=== PATIENT | female | born 1990 | race Two or more races ===

== ENCOUNTER 2021-06-19 16:31 | Emergency (ER) | payer BC ==
--- NOTE | 2021-06-19 19:18 | EDM.PDOC ---
ED HPI GENERAL MEDICAL PROBLEM - General Chief Complaint: Neuro Symptoms/Deficits Stated Complaint: DIZZINESS X5 DAYS Time Seen by Provider: 06/19/21 18:54 Source of Information: Reports: Patient, Family () History Limitations: Reports: No Limitations - History of Present Illness INITIAL COMMENTS - FREE TEXT/NARRATIVE: Mrs. Chapa is a very pleasant 30-year-old woman who now presents to the ED stating that she has been feeling vertiginous on and off since 06/14/2021. The vertigo develops if she turns her head to either side, but is not present if she remains still. She has not had any associated nausea. She denies having a headache. No prior similar symptoms. The patient states that, believing that she might be dehydrated, she has been drinking Pedialyte, which has not helped. Here in the ED, the patient's initial BP is found to be elevated at 169/111, otherwise, she is hemodynamically stable, afebrile, saturating 99% on room air. She appears to be comfortable, in no acute distress. Prior to Monday, the patient denies having a recent fever, chills, sore throat, ear pain, nasal or sinus congestion, cough, dyspnea, chest pain, palpitations, nausea, vomiting, constipation, diarrhea, abdominal pain, urinary symptoms, recent weight gain or weight loss, recent bloody bowel movements or black bowel movements, recent joint aches, headaches, or rashes. The patient does not have a PCP. She has not received a COVID vaccination. 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 ED EXAM, DIZZINESS - Physical Exam Exam: See Below Exam Limited By: No Limitations General Appearance: Alert, WD/WN, No Apparent Distress Eye Exam: Bilateral Eye: EOMI, Normal Inspection Nystagmus: worsens with head to L (very slight), worsens with head to R (significant), reproducible, short duration Ears: Normal External Exam, Normal Canal, Hearing Grossly Normal, Normal TMs Nose: Normal Inspection, Normal Mucosa, No Blood Throat/Mouth: Normal Inspection, Normal Lips, Normal Teeth, Normal Gums, Normal Oropharynx, Normal Voice, No Airway Compromise Head Exam: Atraumatic, Normocephalic Vertigo: worsens with head to L, worsens with head to R, reproducible, short duration Neck: Normal Inspection, Supple, Non-Tender, Full Range of Motion. No: Carotid Bruit, Lymphadenopathy (L), Lymphadenopathy (R) Respiratory/Chest: No Respiratory Distress, Lungs Clear, Normal Breath Sounds, No Accessory Muscle Use Cardiovascular: Normal Peripheral Pulses, Regular Rate, Rhythm, No Edema, No Gallop, No JVD, No Murmur, No Rub GI/Abdominal: Normal Bowel Sounds, Soft, Non-Tender, No Organomegaly, No Distention, No Abnormal Bruit, No Mass Neurological: Alert, Normal Dorsiflexion, CN II-XII Intact, Normal Plantar Flexion, No Motor/Sensory Deficits, Oriented x 3 Back Exam: Normal Inspection, Full Range of Motion, NT Extremities: Normal Inspection, Normal Range of Motion, No Pedal Edema, Normal Capillary Refill Psychiatric: Normal Affect Skin Exam: Warm, Dry, Intact, Normal Color, No Rash Course - Vital Signs Last Recorded V/S: Last Vital Signs Temp 36.9 C 06/19/21 18:08 Pulse 90 06/19/21 18:08 Resp 16 06/19/21 18:08 BP 169/111 H 06/19/21 18:08 Pulse Ox 99 06/19/21 18:08 - Re-Assessments/Exams Free Text/Narrative Re-Assessment/Exam: 06/19/21 19:13 Kb-Hallpike maneuver to the left induced minimal, if any, nystagmus, although the patient did feel vertiginous. Kb-Hallpike maneuver to the right, however, induced a vigorous nystagmus with rapid component to the right, indicating the blocked canalith is on her left. 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 I will refer her to ENT Dr. Bolaños. I advised that she not drive until this is resolved. Departure - Departure Time of Disposition: 19:14 Disposition: Home, Self-Care 01 Condition: Good Clinical Impression: BPPV (benign paroxysmal positional vertigo) - Discharge Information *PRESCRIPTION DRUG MONITORING PROGRAM REVIEWED*: Not Applicable *COPY OF PRESCRIPTION DRUG MONITORING REPORT IN PATIENT KIRSTIN: Not Applicable Prescriptions: Ondansetron [Zofran ODT] 1 tab PO Q8H PRN #10 tab.dis PRN Reason: Nausea/Vomiting Instructions: Benign Positional Vertigo Referrals: PCP,None [Primary Care Provider] - Wei Bolaños MD [Ordering Only Provider] - Forms: ED Department Discharge Additional Instructions: You were seen in the emergency room for dizziness with movement since 06/14/2021. Based on your history and physical examination, you are suffering from benign paroxysmal positional vertigo (BPPV), with the blocked canalith on your left side. A prescription for the antinausea medicine Zofran ODT has been sent to the [facility], located in the [facility] grocery store. You may dissolve 1 tablet of Zofran ODT on your tongue up to every 8 hours, as needed for nausea/vomiting. You may take either meclizine (Antivert) or diphenhydramine (Benadry) as needed for dizziness symptoms, as directed on the label. Both are available [id number], and generic is just as good as name-brand. We recommend that you not drive until this issue is resolved. Please follow-up with the [facility] (ENT) Dr. Wei Bolaños, in [place], at the next available appointment. Make sure that the rep specialist understands that you are following up from the ER, and that you have BPPV. Don't forget that [place] is 1 hour ahead of us. If any other problems, please do not hesitate to return to the ER. Sepsis Event Note (ED) - Evaluation Sepsis Screening Result: No Definite Risk
== END 2021-06-19 19:30 | disposition home or self-care (01) ==
LOC: JD.ED 16:31
DX: H81.13 Benign paroxysmal vertigo, bilateral (principal); E66.9 Obesity, unspecified; Z68.35 Body mass index [BMI] 35.0-35.9, adult
CPT/HCPCS: 99283